=== PATIENT | female | born 1960 | race Caucasian/White ===

== ENCOUNTER 2017-01-13 20:15 | Inpatient (IN) | payer OTHER ==
[~2017-01-13] VITALS: Ht 160 cm; Wt 113.3 kg
--- NOTE | ~2017-01-13 | BMI ---
[facility] Nutrition Therapy DATE: 01/14/17 Patient: PAOLA LYNN Physician: GERRY Address: [address] [place] [address] Room/Bed: [address] [place] [address], Zip: [place] [address] Admit Date: 01/13/17 Date of : [birth year] Height: 5 3 Weight: 249 113.3 HIGH BMI NOTE: ANTHROPOMETRICS: HT: 5'3" WT: 113.3 KG BMI: 44.2 DIET: REGULAR RECOMMENDATIONS: 1. ADD A HEART HEALTHY DIET RESTRICTION TO PROMOTE GRADUAL WEIGHT LOSS TOWARDS A HEALTHY BMI RANGE. Respectfully, FAIZAN DONOVAN RD, LD [facility] Nutrition[facility] cc: client file
--- NOTE | ~2017-01-13 | HP ---
Unit #: [id number] #: [id number] Patient: PAOLA MALONEY [id number] [address] [address] [id number] I MR#: [id number] NAME: PAOLA MALONEY ROOM: 460 Age: 56 Sex: F Admission Date: 01/13/2017 : 1960 Attending Physician: Masood Diallo M.D. Referring Physician: No Primary Care Physician Primary Care Physician: No Primary Care Physician HISTORY AND PHYSICAL ADMISSION DIAGNOSIS Left distal tibia and fibula fractures. HISTORY OF PRESENT ILLNESS Ms. Maloney is a 52-year-old female who reports that she slipped and fell in her home on 01/13/2017 and landed on her left knee. She is unable to get up or bear any weight on her left lower extremity so she was brought to the emergency department for x-rays. These demonstrated a comminuted displaced left distal tibia and fibula fracture. The patient was then admitted to Dr. Diallo. HIPS was consulted for surgical clearance. She denies any past medical history. PAST MEDICAL HISTORY Unremarkable. PAST SURGICAL HISTORY Unremarkable. ALLERGIES No known drug allergies. HOME MEDICATIONS Daily multivitamin and Tylenol PM as needed. FAMILY HISTORY Noncontributory to current illness. SOCIAL HISTORY The patient lives at home with her roommate and her dogs. She does report smoking occasionally. She also reports drinking alcohol but not on a daily basis. She denies any illicit drug use. REVIEW OF SYSTEMS A ten point review of systems was conducted and is negative except for left ankle pain. PHYSICAL EXAMINATION GENERAL: This is a healthy appearing 56-year-old female who currently is in no acute distress. VITAL SIGNS: Temperature 97.8, pulse 92, respirations 18, O2 sat 99%, blood pressure 170/74. HEENT: Pupils are equal, round and reactive to light. The patient is Unit #: [id number] #: [id number] Patient: PAOLA MALONEY normocephalic. Extraocular muscles are intact. NECK: Supple without adenopathy or thyromegaly. CHEST: Symmetric chest rise with no increased work of breathing. CARDIAC: Regular rate and rhythm. ABDOMEN: Soft. EXTREMITIES: The right lower extremity and bilateral upper extremities are warm and well perfused. The left lower extremity is in a well padded posterior splint. Her toes in the left lower extremity are warm and well perfused. She is able to move all five digits. NEUROLOGIC: The patient is awake, alert and oriented x3. Cranial nerves II-XII are grossly intact. DIAGNOSTIC STUDIES LABORATORY: Her white blood cell count is 8.8 and hemoglobin is 11.9. BUN is 8, creatinine 0.5. IMAGING: Plain film radiographs reviewed of the left ankle which show a comminuted displaced left distal tibia and fibula fracture. ASSESSMENT Left distal tibia and fibula fracture. PLAN Dr. Martinez and I discussed treatment options with the patient in her room today. We discussed treating this with a closed reduction and casting versus ORIF. The risks, benefits and alternatives were discussed with the patient. She refused any open procedures at this time and was only consenting to a closed reduction. We will plan to proceed with a closed reduction and casting of the left lower extremity pending surgical clearance from HIPS. Dictated by Salena Harris APRN for Dawn Parks/marlin TD: 01/14/2017 12:43 JOB #: [id number] HISTORY AND PHYSICAL Page 1 of 1 X SALENA HARRIS APRN X HISTORY AND PHYSICAL
--- NOTE | ~2017-01-13 | CR72 ---
[facility] A Service of [facility] & [facility] RADIOLOGY TEXT RESULTS PATIENT: PAOLA LYNN LOCATION: B 460-01 : [birth year] UNIT #: [id number] AGE: [address]: Willy Diallo MD SEX: F ORDER DR: [id number] [facility] [address] [place], [place] [address] [id number] I MR#: [id number] Acc #: [id number] NAME: PAOLA LYNN : 1960 SEX: F STUDY DATE/TIME: 01/14/2017 04:31 UNIT: [facility] ROOM: [facility] STUDY DESCRIPTION: CR Chest Single View Portable Attending Physician: Masood Diallo M.D. Referring Physician: No Primary Care Physician Ordering Physician: Masood Diallo M.D. Primary Care Physician: No Primary Care Physician MEDICAL IMAGING REPORT This report is preliminary unless electronic signature is present EXAM Portable chest 01/14/2017 at 0131 INDICATION Preoperative exam for repair of ankle fracture. Patient slipped on a banana yesterday. TECHNIQUE AND COMPARISON AP portable chest was obtained. No comparison. FINDINGS Heart is enlarged. Lungs are clear. No pneumothorax is seen. IMPRESSION Cardiomegaly. No active disease. Dictated by... Olu Rayo Jr., M.D. THIS IS AN ELECTRONICALLY VERIFIED REPORT Olu Rayo Jr., M.D. at 01/14/2017 9:41 PM NEVA/edmund TD: 01/14/2017 10:11 JOB #: [id number] MEDICAL IMAGING REPORT Page 1 of 1 COPY
--- NOTE | ~2017-01-13 | DS ---
Unit #: [id number] #: [id number] Patient: PAOLA MALONEY [id number] [address] [address] [id number] I MR#: [id number] NAME: PAOLA MALONEY ROOM: 460 Age: 56 Sex: F Admission Date: 01/13/2017 : 1960 Discharge Date: 01/14/2017 Attending Physician: Masood Diallo M.D. Referring Physician: No Primary Care Physician Primary Care Physician: No Primary Care Physician DISCHARGE SUMMARY ADMITTING DIAGNOSIS Left distal tibia and fibula fracture. DISCHARGE DIAGNOSIS Left distal tibia and fibula fracture, status post closed reduction and casting. PROCEDURES PERFORMED On 01/14/2017, the patient was taken to the operating room for a closed reduction and casting of her left distal tibia and fibula fractures. Please see operative report for further details. BRIEF HISTORY Ms. Maloney is a 52-year-old female who slipped and fell in her home on 01/13/2017. She was brought to the ER where she was diagnosed with a left distal tibia and fibula fracture. She was then admitted to our group for surgical intervention. We discussed with her ORIF versus closed reduction of the fractures. She refused to undergo ORIF so we proceeded with a closed reduction and casting. HOSPITAL COURSE The patient was transferred from the ER up to the orthopedic unit. The night of being admitted, she was kept comfortable wit IV pain medication. On 01/14/2017, she was then taken to the OR for closed reduction and casting. She was then transferred back to the orthopedic unit. Physical therapy was consulted to see the patient. After working with her on ambulation with her nonweight-bearing status of the left lower extremity she was cleared to be discharged home safely. Her vital signs remained stable and her pain was well controlled so we will discharge her home later today. CONDITION AT DISCHARGE Stable. DISPOSITION The patient will be discharged home where she has a roommate to help with care. She already has a wheelchair at home, thus she can use to get around. DISCHARGE MEDICATIONS 1. [place] 5/325 one to two tablets p.o. q.4 hours p.r.n., dispense #65. She was sent home with a prescription for [place]. 2. Aspirin 325 one tablet p.o. q.day x2 weeks for DVT prophylaxis. Unit #: [id number] #: [id number] Patient: PAOLA MALONEY DISCHARGE INSTRUCTIONS The patient will follow-up with Dr. Martinez in two weeks time for repeat x-rays of the left ankle. She will remain nonweight-bearing of the left lower extremity in her cast. She is not to get her cast wet. She will take aspirin once daily for the next two weeks for DVT prophylaxis. Dictated by... Salena Harris APRN for Dawn Parks TD: 01/16/2017 00:15 JOB #: [id number] DISCHARGE SUMMARY Page 1 of 1 X SALENA HARRIS APRN X DISCHARGE SUMMARY
--- NOTE | ~2017-01-13 | CR252 ---
[facility] A Service of [facility] RADIOLOGY TEXT RESULTS PATIENT: PAOLA LYNN LOCATION: [facility] 460-01 : [birth year] UNIT #: [id number] AGE: [address]: Willy Diallo MD SEX: F ORDER DR: [id number] [place] [id number] [facility]. [place], [place] [address] [id number] I MR#: [id number] Acc #: [id number] NAME: PAOLA LYNN : 1960 SEX: F STUDY DATE/TIME: 01/14/2017 UNIT: [facility] ROOM: [facility] STUDY DESCRIPTION: CR Tibia and Fibula 2 Views Lt Attending Physician: Masood Diallo M.D. Referring Physician: No Ref Unknown Ordering Physician: Eduardo Martinez M.D. Primary Care Physician: No Primary Care Physician MEDICAL IMAGING REPORT This report is preliminary unless electronic signature is present EXAM Left tibia and fibula intraoperative views 01/14/2017 10:19 hours HISTORY 56-year-old with acute fracture of the tibia and fibula for intraoperative closed reduction by Dr. Martinez. Comparison 01/13/2017. FINDINGS Following 20 seconds of fluoroscopy time, 4 intraoperative images obtained by Dr. Martinez are submitted for interpretation. These are performed in a cast, demonstrating a spiral type fracture of the distal metaphyseal portion of the tibia and an oblique fracture of the fibula in near anatomic alignment. IMPRESSION Intraoperative views in a cast demonstrate a comminuted spiral type fracture of the distal metaphysis of the tibia and oblique fracture of the distal fibula near anatomic alignment. A cast is present. No intraarticular extension is seen. Dictated by... Anne Hughes M.D. THIS IS AN ELECTRONICALLY VERIFIED REPORT Anne Hughes M.D. at 01/14/2017 7:32 PM Reji TD: 01/14/2017 14:34 JOB #: [id number] [facility] A Service of [facility] RADIOLOGY TEXT RESULTS PATIENT: PAOLA LYNN [facility] 460[facility]01 [facility] [id number] : [birth year] UNIT #: [id number] AGE: [address]: Willy Diallo MD SEX: F ORDER DR: MEDICAL IMAGING REPORT Page 1 of 1 COPY
--- NOTE | ~2017-01-13 | EKG ---
PATIENT: PAOLA LYNN UNIT #: [id number] Ventricular Rate: 94 BPM Atrial Rate: 94 BPM P-R Interval: 172 ms QRS Duration: 74 ms Q-T Interval: 344 ms QTC Calculation(Bezet): 430 ms P [place]: 50 degrees Calculated R [place]: 49 degrees Calculated T [place]: 51 degrees Diagnosis Line: Normal sinus rhythm Diagnosis Line: Septal infarct , age undetermined Diagnosis Line: Abnormal ECG Diagnosis Line: No previous ECGs available Diagnosis Line: Confirmed by DUSTY MARAVILLA MD ([id number]) on Diagnosis Line: 01/14/2017 12:00:29 PM INTERPRETING MD: TAIWO LOVETT
--- NOTE | ~2017-01-13 | EKG ---
PATIENT: PAOLA LYNN UNIT #: [id number] Ventricular Rate: 103 BPM Atrial Rate: 103 BPM P-R Interval: 164 ms QRS Duration: 82 ms Q-T Interval: 360 ms QTC Calculation(Bezet): 471 ms P [place]: 56 degrees Calculated R [place]: 56 degrees Calculated T [place]: 55 degrees Diagnosis Line: Sinus tachycardia Diagnosis Line: Cannot rule out Anterior infarct , age Diagnosis Line: undetermined Diagnosis Line: Abnormal ECG Diagnosis Line: No previous ECGs available Diagnosis Line: Confirmed by DUSTY MARAVILLA MD ([id number]) on Diagnosis Line: 01/14/2017 11:58:08 AM INTERPRETING MD: TAIWO LOVETT
--- NOTE | ~2017-01-13 | OR ---
Unit #: [id number] #: [id number] Patient: PAOLA MALONEY [id number] [address] [address] [id number] I MR#: [id number] NAME: PAOLA MALONEY ROOM: 460 Date of Procedure: 01/14/2017 Admission Date: 01/13/2017 Surgeon: Eduardo Martinez M.D. : 1960 Attending Physician: Masood Diallo M.D. Referring Physician: Primary Care Physician No Primary Care Physician: Primary Care Physician No OPERATIVE REPORT PREOPERATIVE DIAGNOSES Left distal one-third tibial shaft fracture and left distal fibular fracture. POSTOPERATIVE DIAGNOSES Left distal one-third tibial shaft fracture and left distal fibular fracture. PROCEDURES PERFORMED Closed reduction and cast application, left distal tibia and fibular fracture. MANAGER TRANSPORTATION PLANNING Zulma Chaudhary APRN, RNFA. ANESTHESIA General. ESTIMATED BLOOD LOSS Not applicable. COMPLICATIONS None apparent. INDICATIONS FOR PROCEDURE Ms. Maloney is a 56-year-old female, who sustained a left distal tibia and fibular fracture in a ground level fall. She apparently was intoxicated at the time. We have discussed open reduction and internal fixation versus closed reduction and casting. She is refusing any surgical intervention in the form of placement of a plate or a tibial nail. She is only amenable to closed reduction and application of the cast. Her fracture appears to be amenable to this. We elected to proceed. DESCRIPTION OF PROCEDURE The patient was identified in the preoperative holding area. The operative site was marked. The patient was brought to the operating room and placed supine on the operating table. A general anesthetic was induced with an LMA. The previous splint was removed. The left lower extremity was then identified and a time-out performed. The fracture was then reduced under C-arm imaging. Stockinette and Webril were applied and then a short leg cast wrapped just above the ankle. This was held in place with the ankle in the desired dorsiflexion. With the short cast, we Unit #: [id number] #: [id number] Patient: PAOLA MALONEY then were able to use this to manipulate the fracture. With a combination of again longitudinal traction and a lateral to medial directed force, we achieved a good reduction. A slight anterior force was applied to the heel reduce the procurvatum. The remainder of the cast was then wrapped. The reduction was checked under C-arm imaging as the cast was completed. The cast was then allowed to cure as the leg was held in desired reduced position. DISPOSITION Aroused from anesthesia and transported to recovery room in stable condition. POSTOPERATIVE PLAN She will be nonweightbearing on the affected extremity in a cast for 8 to 12 weeks. Dictated by... Dawn Parks/unruly TD: 01/14/2017 12:39 JOB #: [id number] OPERATIVE REPORT Page 1 of 1 X Eduardo Martinez MD X PROCEDURE OPERATIVE NOTE
--- NOTE | ~2017-01-13 | CR20 ---
[facility] A Service of [facility] & [facility] RADIOLOGY TEXT RESULTS PATIENT: PAOLA LYNN LOCATION: B 460-01 : [birth year] UNIT #: [id number] AGE: [address]: Willy Diallo MD SEX: F ORDER DR: [id number] [facility] [address] [place], [place] [address] [id number] I MR#: [id number] Acc #: [id number] NAME: PAOLA LYNN : 1960 SEX: F STUDY DATE/TIME: 01/13/2017 20:47 UNIT: [facility] ROOM: [facility] STUDY DESCRIPTION: CR Ankle Min 3 Views Lt Attending Physician: Masood Diallo M.D. Referring Physician: Primary Care Physician No Ordering Physician: Ed Doctor [id number] [facility] Primary Care Physician: Primary Care Physician No MEDICAL IMAGING REPORT This report is preliminary unless electronic signature is present EXAM Left ankle 3 views 01/13/2017 HISTORY Pain and swelling in the left ankle after slipping on a banana on 01/13/17. FINDINGS Three views of the left ankle demonstrate comminuted oblique fractures of the distal tibia and fibula which are minimally displaced. No other fracture or dislocation is seen. The bones are normally mineralized and the ankle mortise is intact. Soft tissue swelling is seen about the fractures. IMPRESSION Comminuted displaced fractures involving the distal tibia and fibula. Dictated by... Eduardo Mcleod M.D. THIS IS AN ELECTRONICALLY VERIFIED REPORT Eduardo Mcleod M.D. at 01/14/2017 2:19 PM NYA/paola TD: 01/14/2017 08:38 JOB #: [id number] MEDICAL IMAGING REPORT Page 1 of 1 COPY
--- NOTE | ~2017-01-13 | HP ---
Unit #: [id number] #: [id number] Patient: PAOLA LYNN [id number] [address] [address] [id number] I MR#: [id number] NAME: PAOLA LYNN ROOM: 460 Age: 56 Sex: F Admission Date: 01/13/2017 : 1960 Attending Physician: Masood Diallo M.D. Referring Physician: Masood Diallo M.D. Primary Care Physician: No Primary Care Physician HISTORY AND PHYSICAL REASON FOR CONSULTATION Medical clearance. HISTORY This 56-year-old healthy female is admitted to the orthopedic service for a traumatic distal left tibial fibular fracture. The patient slipped in her home, landed on her left knee. Was unable to get up for about two hours. She was brought to this emergency department late tonight where x-ray demonstrate a comminuted displaced distal left tibial fibular fracture. The patient was given morphine and Zofran, and the call was made to Dr. Diallo. The patient denies medical problems except for a toothache currently. She is on no chronic medications. She states that she is quite active without chest pain or shortness of breath. PAST MEDICAL HISTORY Unremarkable. ALLERGIES None. HOME MEDICATIONS Vitamin and Tylenol p.m. FAMILY HISTORY Negative for CAD. SOCIAL HISTORY The patient lives with her roommate and dogs. Smokes occasionally. Drinks occasional alcohol but not on a daily basis. Denies illicit drug use. REVIEW OF SYSTEMS Notable for fall, left knee pain, toothache, occasional tobacco use. All other systems were reviewed and otherwise negative. PHYSICAL EXAMINATION GENERAL: Pleasant, moderately obese 56-year-old female currently in no acute distress. VITAL SIGNS: Temperature 97.5, pulse 91, respiration 22, blood pressure 129/89, O2 saturation is 95% on room air. HEENT: Eyes - PERRLA. Extraocular muscles are intact. Pharynx is benign Unit #: [id number] #: [id number] Patient: PAOLA LYNN with poor dentition. NECK: Supple without adenopathy or thyromegaly. CHEST: Clear. CARDIAC: Normal S1 and S2 without S3, S4 or murmur. ABDOMEN: Bowel sounds are present. No hepatosplenomegaly, tenderness, or masses. EXTREMITIES: No pedal edema on the right. Good pedal pulse on the right. Left lower extremity is in a splint. NEUROLOGIC: Patient is awake, alert, and oriented. Cranial nerves are intact. She is able to move all of her extremities. DIAGNOSTIC STUDIES LABORATORY STUDIES: Hematocrit is 38.1, normal white count and platelet count, MCV is elevated at 105. Coags are normal. SMA 7 and alcohol currently pending. IMAGING STUDIES: Plain x-rays of the knee show a comminuted displaced left distal tib-fib fracture. ASSESSMENT Fall with distal left tib-fib fracture. PLANS 1. Plans are for surgery. 2. Tobacco use. 3. Macrocytosis. 4. Toothache. PLANS 1. Await labs. 2. Check B12 and folic acid levels. 3. Obtain EKG and chest x-ray. 4. Amoxicillin. 5. Will clear based on above. 6. Will check LFTs in the morning. Thank you very much for this consult. ADDENDUM Alcohol level is 241. Will therefore, order vitamins, and Ativan for CIID protocol. Will ask for LFTs in the morning. Dictated by Reina Valdes M.D. AML/ts TD: 01/14/2017 05:03 JOB #: [id number] Unit #: [id number] #: [id number] Patient: PAOLA LYNN HISTORY AND PHYSICAL Page 1 of 1 X Reina Valdes MD HISTORY AND PHYSICAL
[2017-01-13 23:11] LABS: BASOPHIL% 0.3 % (0-2.5); DIFF IND NO; EOSINOPHIL# 0.2 X10e3 (0-0.7); HEMATOCRIT 38.1 % (35.0-45.0); HEMOGLOBIN 12.9 gm/dL (12.0-16.0); LYMPHOCYTE# 2.6 X10e3 (1.0-3.5); LYMPHOCYTE% 30.6 % (17.0-45.0); MEAN CELL VOLUME 104.9 FL (83-96); MEAN CORPUSCULAR HEMOGLOBIN 35.5 PG (28-34); MEAN CORPUSCULAR HGB CONC 33.9 g/dL (30-36); MEAN PLATELET VOLUME 6.5 FL (6.5-11.5); MONOCYTE# 0.4 X10e3 (0-1.0); MONOCYTE% 4.3 % (3.0-12.0); NEUTROPHIL# 5.3 X10e3 (1.5-7.1); NEUTROPHIL% 62.8 % (40-75); PLATELET COUNT 211 X10e3 (140-420); RED BLOOD COUNT 3.63 X10e (3.90-5.30); RED CELL DISTRIBUTION WIDTH 13.4 % (11.0-15.5); WHITE BLOOD COUNT 8.4 X10e3 (4.0-10.5)
[2017-01-13 23:18] LABS: INR 1.1; PARTIAL THROMBOPLASTIN TIME 23.2 SECONDS (23.5-31.3); PROTHROMBIN TIME (PATIENT) 11.7 SECONDS (10.0-11.7)
[2017-01-13 23:34] LABS: BUN/CREATININE RATIO 17.5; CALCIUM SERUM 9.2 mg/dL (8.4-10.2); CREATININE SERUM 0.4 mg/dL (0.6-1.4); GLOM FILT RATE Estimated 118.1 mL/min (>60); POTASSIUM 3.7 mmol/L (3.5-5.1)
[2017-01-14] MEDS ORDERED: NO MEDICATIONS (01:46)
[2017-01-14 03:38] LABS: ALBUMIN SERUM 3.9 g/dL (3.5-5.0); BILIRUBIN,TOTAL 0.6 mg/dL (0.2-2.0); CALCIUM SERUM 8.9 mg/dL (8.4-10.2); CREATININE SERUM 0.5 mg/dL (0.6-1.4); GLOM FILT RATE Estimated 109.7 mL/min (>60); POTASSIUM 3.5 mmol/L (3.5-5.1); PROTEIN TOTAL SERUM 7.2 g/dL (6.0-8.3)
[2017-01-14 08:29] LABS: BASOPHIL% 0.3 % (0-2.5); EOSINOPHIL# 0.1 X10e3 (0-0.7); EOSINOPHIL% 1.6 % (0.0-7.0); HEMATOCRIT 36.2 % (35.0-45.0); HEMOGLOBIN 11.9 gm/dL (12.0-16.0); LYMPHOCYTE# 1.5 X10e3 (1.0-3.5); LYMPHOCYTE% 17.6 % (17.0-45.0); MEAN CELL VOLUME 105.6 FL (83-96); MEAN CORPUSCULAR HEMOGLOBIN 34.7 PG (28-34); MEAN CORPUSCULAR HGB CONC 32.8 g/dL (30-36); MEAN PLATELET VOLUME 6.9 FL (6.5-11.5); MONOCYTE# 0.7 X10e3 (0-1.0); MONOCYTE% 7.9 % (3.0-12.0); NEUTROPHIL# 6.4 X10e3 (1.5-7.1); NEUTROPHIL% 72.6 % (40-75); PLATELET COUNT 183 X10e3 (140-420); RED BLOOD COUNT 3.43 X10e (3.90-5.30); RED CELL DISTRIBUTION WIDTH 13.4 % (11.0-15.5); WHITE BLOOD COUNT 8.8 X10e3 (4.0-10.5)
[2017-01-14 08:44] LABS: INR 1.1; PROTHROMBIN TIME (PATIENT) 11.8 SECONDS (10.0-11.7)
[2017-01-14 08:51] LABS: DIFF IND YES
[2017-01-14 09:12] LABS: FOLATE (FOLIC ACID) >23.2 ng/mL (>5.8)
[2017-01-14 12:33] LABS: PLATELET ESTIMATE NORMAL (NORMAL)
[2017-01-14 12:34] LABS: STOMATOCYTE PRESENT
[2017-01-14] MEDS ORDERED: AMOXICILLIN500 M1 PO (16:54)
[2017-01-14] MEDS ORDERED: ASPIRIN ENTERI325 M1 PO (16:55)
[2017-01-14] MEDS ORDERED: OXYCODONE HCL5 MG PO (16:56)
[2017-01-14] MEDS ORDERED: B12 PO (16:58)
== END 2017-01-14 17:57 | disposition home or self-care (01) | DRG 563 ==
LOC: CED 20:15 → C4B 21:25 → CEDOF 21:25 → C4B 01-14 17:57
PROVIDERS: Emergency Medicine; Orthopaedic Surgery
PROC: 0QSHXZZ Reposition Left Tibia, External Approach (ICD-10-PCS; 2017-01-14)
PROC: 0QSKXZZ Reposition Left Fibula, External Approach (ICD-10-PCS; principal; 2017-01-14 09:00)
DX: S82.302A Unspecified fracture of lower end of left tibia, initial encounter for closed fracture (principal); Z68.41 Body mass index [BMI] 40.0-44.9, adult; D75.89 Other specified diseases of blood and blood-forming organs; S82.452A Displaced comminuted fracture of shaft of left fibula, initial encounter for closed fracture; F17.200 Nicotine dependence, unspecified, uncomplicated; E53.8 Deficiency of other specified B group vitamins; K08.89 Other specified disorders of teeth and supporting structures; W19.XXXA Unspecified fall, initial encounter; Y92.009 Unspecified place in unspecified non-institutional (private) residence as the place of occurrence of the external cause; Z72.89 Other problems related to lifestyle; Y90.8 Blood alcohol level of 240 mg/100 ml or more; E66.01 Morbid (severe) obesity due to excess calories
CPT/HCPCS: 71010; 73590; 73610; 76001; 80048; 80053; 82607; 82746; 84703; 85025; 85610; 85730; 93005; 97161; 97530; 99285; G0480; G8978-GP; G8979-GP; G8980-GP; J0690; J2250; J2270; J2405; J2795; J3010; J3411